=== PATIENT | male | born 1955 | race Caucasian/White ===

== ENCOUNTER 2019-10-02 08:43 | Outpatient (CLI) | payer MEDICARE, OTHER, SELFPAY | END 2019-10-02 08:44 | disposition home or self-care (01) | LOC: ANHAUDIO 08:50 | PROVIDERS: PCP Family Medicine; Visit Provider Otolaryngology | DX: H90.3 Sensorineural hearing loss, bilateral (principal) | CPT/HCPCS: 92557; 92567 ==

== ENCOUNTER 2020-11-08 09:50 | Outpatient (CLI) | payer MEDICARE, OTHER, SELFPAY ==
--- NOTE | 2020-11-08 09:54 | ECG_ITS ---
Measurements Intervals [place] Rate: 48 P: -63 MI: 219 QRS: -33 QRSD: 166 T: 2 QT: 435 QTc: 392 Interpretive Statements SINUS BRADYCARDIA WITH FIRST DEGREE AV BLOCK WITH NON-CONDUCTED PAC LEFT AXIS DEVIATION RIGHT BUNDLE BRANCH BLOCK ABNORMAL ECG Electronically Signed On 11-08-2020 10:18:14 CDT by Donnell Massey D.O.
== END 2020-11-08 09:51 | disposition home or self-care (01) ==
PROVIDERS: PCP Family Medicine; Visit Provider Urology
DX: Z01.810 Encounter for preprocedural cardiovascular examination (principal); R00.1 Bradycardia, unspecified; I44.0 Atrioventricular block, first degree
CPT/HCPCS: 93005

== ENCOUNTER 2020-11-14 02:06 | Day surgery (SDC) | payer MEDICARE, OTHER, SELFPAY ==
[2020-11-07 11:11] VITALS: BMI 31.8
[2020-11-14] VITALS (12 sets, daily range): BP systolic 91–161; BP diastolic 54–80; PULSE 47–61; RESP 11–15; TEMP 36.6; O2SAT 98–100; BMI 31.7
--- NOTE | ~2020-11-14 | XR_ITS ---
EXAMINATION: XR retrograde pyelogram BI EXAM DATE: 11/14/2020 09:56 INDICATION: Bladder tumor. TECHNIQUE: Fluoroscopy used during XR retrograde pyelogram BI performed by Dr. Surya Feliciano MD , urologist. The radiologist David Berry M.D. dictating this report of the image(s) available was no t present for the procedure. Total fluoroscopic time of 25 seconds. The DAP for this procedure was 695 radcm2. A total of 112 images sent to PACS from the exam. Cine run(s) available for review. Co mparison is made to prior examination from 02/18/2017. FINDINGS: Right ureter was cannulated, injected, is unremarkable. The left ureter was also injected and is also unremarkable. Correlate with procedure note. IMPRESSION: Fluoroscopy used during XR retrograde pyelogram BI. Reviewed, dictated and finalized at location A.
--- NOTE | 2020-11-14 07:13 | WPDHPUPDATE1 ---
History and Physical Update Update Date/Time: 11/14/20 07:13 History and Physical has been reviewed, including an updated exam of the patient. There are NO changes in the patient's condition. Risks, benefits, and alternatives have been discussed and questions answered. Patient agrees to proceed with procedure.
--- NOTE | 2020-11-14 08:47 | WPDANESEPPF ---
Anes - Initial Pre Proc Eval Procedure: Operation Date: 11/14/20 10:00 Proposed Procedures p Cystoscopy, Bilateral Retrograde Pyelogram, - Surya Feliciano MD s Trans Urethral Resection Bladder Tumor with Gemcitabine Instillation - Surya Feliciano MD Date/Time: 11/14/20 08:47 Surgeon: Surya Feliciano MD Pre Op Diagnosis: bladder CA Patient Data Age: 65 Gender: M Height: 1.79 m Weight: 102.1 kg Allergies Allergy/AdvReac Type Severity Reaction Status Date / Time No Known Allergies Allergy Mild Verified 11/14/20 08:35 Home Medications Medication Instructions Recorded Confirmed Type finasteride 5 mg tablet 5 mg PO DAILY 08/01/19 11/14/20 History magnesium 200 mg tablet 200 mg PO DAILY 08/01/19 11/07/20 History pnraiqkh-wah-euqjy 200 mcg-lycop 1 tablet PO DAILY 08/01/19 11/07/20 History 175 mcg-lutei 250 mcg-herb 178 tablet omega-3 fatty acids 1,000 mg 1,000 mg PO DAILY 08/01/19 11/07/20 History capsule lisinopril 20 mg tablet 20 mg PO DAILY tablet 08/06/20 11/14/20 History amlodipine 5 mg tablet 5 mg PO DAILY #90 tablet 11/07/20 11/14/20 Rx sildenafil (pulm.hypertension) 20 mg PO PRN PRN 11/07/20 11/07/20 History simvastatin 10 mg PO DAILY 11/07/20 11/14/20 History Patient hx anesthesia problems: none Family hx anesthesia problems: none PMFSH Past Medical History Medical History BPH NOS w/o ur obs/LUTS Dyslipidemia Erectile dysfunction Essential (primary) hypertension Hematoma Hypogonadism in male 11/2012 SHYANNE (obstructive sleep apnea) Tinnitus of both ears Vitamin D deficiency Family History Family History Father Family history of Alzheimer's disease Mother Family history of dementia Social History Social History Smoking status: Never smoker Alcohol intake: current Alcohol use details: 3 DRINKS PER MONTH Living arrangements: with family Spiritual care concerns: No Anes - Eval Final PreProcedure Day of Procedure 11/14/20 08:47 Patient weight: obese Heart: regular rate and rhythm Lungs: clear to auscultation Airway: Mallampati scale class II Neurological: alert and oriented Last oral intake: >/= 8 hours ASA classification: III Emergent: no Anesthetic plan: proceed Anesthesia type and monitoring: general and standard monitoring Informed Consent: The patient's anesthetic plan and its attendant risks and benefits were discussed with the patient/family/POA. Questions were solicited and answers provided to the satisfaction of the patient/family/POA.
[2020-11-14] MEDS: LACTATED RINGERS 1,000 ML 30 ML IV CONT (09:02)
[2020-11-14] MEDS: ceFAZolin 2 GM/D5W 50 ML 2 GM/50 ML BAG IVPB (09:31)
[2020-11-14] MEDS: LIDOCAINE HCL 2% GEL UROJET 10 ML PKG MUCOUS MEM (09:51)
--- NOTE | 2020-11-14 10:13 | W.PM.PROC2 ---
Procedure Note - Detailed Date of Procedure 11/14/20 Pre-op Diagnosis Bladder cancer Post-op Diagnosis same Procedure Performed TURBT (medium, 5-6cm) Surgeon Surya Feliciano MD Anesthesia general Description of Procedure The patient was brought to the operative suite where he is prepped and draped in a routine sterile fashion while in the dorsal lithotomy position. This is done after the uneventful administration of general mask anesthesia. 2% Xylocaine jelly is introduced intraurethrally and allowed to stand for an appropriate period of time. 1St, bilateral retrograde pyelograms were obtained using a 19 F rigid cystoscope an 8 F bulb-tipped catheter. These ureteral pyelograms revealed no filling defects or other identifiable pathology of the upper urinary tracts. A 24F resectoscope sheath was placed in the bladder and the bladder is circumferentially inspected carefully. 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 This area is resected in its entirety with an attempt made to include detrusor muscle for pathological evaluation of invasion. The base and periphery of this resected side is cauterized with a loop electrode. The remainder of the bladder reveals normal mucosa hence, I opted against reandom bladder biopsies. The bladder is emptied and the resectoscope was removed. The patient is taken to the recovery room having tolerated this procedure well. Estimated Blood Loss 0 Drains Yes Packing No Pathology yes Complications No immediate complications Condition stable Disposition PACU
--- NOTE | 2020-11-14 10:19 | W.PM.PROC2 ---
Procedure Note - Detailed Date of Procedure 11/14/20 Pre-op Diagnosis Bladder CA Post-op Diagnosis same Procedure Performed Instillation Gemcitabine in bladder Surgeon Surya Feliciano MD Anesthesia local Description of Procedure With the patient in the supine position, a 16F Sanchez catheter is placed using sterile technique. Using a protective facemask, gown and double layer of gloves Gemcitabine 2gm in 100cc saline is administered through the catheter/into the bladder. The catheter is then plugged. Patient was instructed to lie supine x20min, then to roll both the left and right x20 min. each. Total dwell time will be 60 min., after which the bladder will be drained and catheter removed. Estimated Blood Loss 0 Drains Yes Packing No Pathology none sent Complications No immediate complications Condition stable Disposition PACU
[2020-11-14] MEDS: SODIUM CHLORIDE 0.9% IV 23.7 ML, GEMCITABINE HCL 1,000 MG BLADDER ×2 (10:48→10:49)
[2020-11-14] MEDS: fentaNYL CITRATE INJ (*CRX) 100 MCG/2 ML VIAL 25 MCG IV PUSH ×2 (10:52→11:06)
== END 2020-11-14 13:21 | disposition home or self-care (01) ==
PROVIDERS: PCP Family Medicine; Visit Provider Urology
PROC: (CPT 52352; principal; 2020-11-14 10:00)
PROC: 0TBB8ZZ Excision of Bladder, Via Natural or Artificial Opening Endoscopic (ICD-10-PCS; CPT 52235; 2020-11-14 10:00)
DX: C67.8 Malignant neoplasm of overlapping sites of bladder (principal); I10 Essential (primary) hypertension; E78.5 Hyperlipidemia, unspecified; N40.0 Benign prostatic hyperplasia without lower urinary tract symptoms; G47.33 Obstructive sleep apnea (adult) (pediatric); E55.9 Vitamin D deficiency, unspecified; E66.9 Obesity, unspecified; Z68.31 Body mass index [BMI] 31.0-31.9, adult
CPT/HCPCS: 52235; 51720; 74420; 88305; 88307; A9270; C1758; C1769; J0690; J1100; J2405; J2704; J3010; J7120; J9201; Q9966

== ENCOUNTER 2022-02-16 10:29 | Outpatient (CLI) | payer MEDICARE, SELFPAY ==
[2022-02-16 18:48] LABS: Alanine Aminotransferase 35 U/L (6-50); Albumin Level 4.6 g/dL (3.5-5.1); Alkaline Phosphatase 75 U/L (38-126); Anion Gap 3 mmol/L (8-16); Aspartate Amino Transferase 51 U/L (17-59); Bilirubin,Total 0.4 mg/dL (0.2-1.3); Blood Urea Nitrogen 16 mg/dL (9-20); Carbon Dioxide 32 mmol/L (22-30); Chloride 102 mmol/L (98-107); Estimated Glomerular Filt Rate > 60; Glucose 81 mg/dL (65-110); Potassium 4.2 mmol/L (3.4-5.0); Sodium 137 mmol/L (137-145)
[2022-02-16 18:49] LABS: Hemoglobin A1C 5.8 % (<5.7)
== END 2022-02-16 10:30 | disposition home or self-care (01) ==
LOC: ANHGOSHLAB 10:33
PROVIDERS: PCP Family Medicine; Visit Provider Family Medicine
DX: I10 Essential (primary) hypertension (principal); R73.9 Hyperglycemia, unspecified
CPT/HCPCS: 36415; 80053; 83036

== ENCOUNTER 2022-09-17 09:36 | Outpatient (CLI) | payer MEDICARE, SELFPAY ==
[2022-09-17 14:31] LABS: Basophils Absolute Auto 0.1 K/mm3 (0.0-0.1); Basophils Percent Auto 1.1 % (0.2-1.2); Eosinophils Absolute Auto 0.2 K/mm3 (0-0.3); Eosinophils Percent Auto 2.6 % (0-4.4); Hematocrit 41.6 % (42.0-52.0); Hemoglobin 13.8 g/dL (14.0-18.0); Immature Granulocyte Absolute 0.02 K/mm3 (0.00-0.031); Immature Granulocyte Percent A 0.3 % (0-0.5); Lymphocytes Absolute Auto 2.57 K/mm3 (0.9-3.2); Lymphocytes Percent Auto 35.4 % (18.3-44.2); Mean Corpuscular HGB Conc 33.2 g/dl (32-36); Mean Corpuscular Hemoglobin 30.5 pg (26-34); Mean Corpuscular Volume 91.8 fl (80-100); Mean Platelet Volume 10.2 fl (7.4-10.4); Monocytes Absolute Auto 0.6 K/mm3 (0.1-0.6); Monocytes Percent Auto 8.4 % (2.6-8.5); Neutrophils Absolute Auto 3.8 K/mm3 (1.3-6.7); Neutrophils Percent Auto 52.2 % (45.5-73.1); Platelet Count Result 261 k/mm3 (150-375); Red Blood Count 4.53 M/mm3 (4.6-6.20); Red Cell Distribution Width 13.4 % (11.5-14.5); White Blood Count 7.3 K/mm3 (4.5-10.0)
[2022-09-17 16:48] LABS: Alanine Aminotransferase 36 U/L (6-50); Albumin Level 4.7 g/dL (3.5-5.1); Alkaline Phosphatase 80 U/L (38-126); Anion Gap 6 mmol/L (8-16); Aspartate Amino Transferase 36 U/L (17-59); Bilirubin,Total 0.5 mg/dL (0.2-1.3); Blood Urea Nitrogen 16 mg/dL (9-20); Carbon Dioxide 29 mmol/L (22-30); Chloride 107 mmol/L (98-107); Cholesterol 171 mg/dL (0-200); Estimated Glomerular Filt Rate > 60; Glucose 102 mg/dL (65-110); HDL Direct 42 mg/dL; Potassium 4.4 mmol/L (3.4-5.0); Sodium 142 mmol/L (137-145); Triglycerides 107 mg/dL (<150)
[2022-09-17 17:02] LABS: LDL Cholesterol Direct 96 mg/dL
[2022-09-17 17:17] LABS: Prostate Specific Antigen 0.2 ng/mL (< OR = 4.0)
[2022-09-17 17:50] LABS: Vitamin D 25 Hydroxy 60.7 ng/mL
[2022-09-17 18:45] LABS: Hemoglobin A1C 5.8 % (<5.7)
[2022-09-27 10:50] LABS: Testosterone Free 42.6 pg/mL (35.0-155.0); Testosterone Total 202 ng/dL (250-1100)
== END 2022-09-17 09:37 | disposition home or self-care (01) ==
LOC: ANHGOSHLAB 09:37
PROVIDERS: PCP Family Medicine; Visit Provider Family Medicine
DX: E78.5 Hyperlipidemia, unspecified (principal); E53.8 Deficiency of other specified B group vitamins; Z12.5 Encounter for screening for malignant neoplasm of prostate; R73.03 Prediabetes; E55.9 Vitamin D deficiency, unspecified; I10 Essential (primary) hypertension; N52.9 Male erectile dysfunction, unspecified; E29.1 Testicular hypofunction
CPT/HCPCS: 36415; 80053; 80061; 82306; 82607; 83036; 84153; 84402; 84403; 84443; 85025; G0103

== ENCOUNTER 2022-11-05 13:41 | Outpatient (CLI) | payer MEDICARE, SELFPAY ==
[2022-11-08 14:53] LABS: Testosterone Free 49.5 pg/mL (35.0-155.0); Testosterone Total 245 ng/dL (250-1100)
== END 2022-11-05 13:42 | disposition home or self-care (01) ==
LOC: ANHGOSHLAB 13:45
PROVIDERS: PCP Family Medicine; Visit Provider Family Medicine
DX: E29.1 Testicular hypofunction (principal)
CPT/HCPCS: 36415; 84402; 84403

== ENCOUNTER 2022-11-06 09:28 | Outpatient (CLI) | payer MEDICARE, SELFPAY ==
--- NOTE | ~2022-11-06 | CT_ITS ---
CT of the Abdomen and Pelvis: Indication: Bladder cancer Technique: 2.5 mm axial scans were obtained through the abdomen and pelvis prior to and following in travenous administration of 130 cc of Omnipaque 350. Dose reduction technique was used on this scan b y utilizing automated exposure control and iterative reconstruction technique. The dose-length produc t (DLP) was 2721.48 mGy-cm. Findings: Scans through the lung bases are unremarkable. The liver, spleen, pancreas, adrenals and kidneys are within normal limits. Gallstone present. No jodie dence of aortic aneurysm. No lymphadenopathy. No bowel obstruction or bowel wall thickening. There is no evidence to suggest acute appendicitis. Images through the pelvis were performed. Questionable mild wall thickening on the right side of the urinary bladder. Fat-containing right inguinal hernia present. No pelvic mass identified. No ascites. Impression: No evidence for metastatic disease. Questionable mild wall thickening along the right-sided urinary bladder, nonspecific. Correlate with clinical/treatment history. Fat-containing right inguinal hernia. Cholelithiasis. Reviewed, dictated and finalized at location . Impression: No evidence for metastatic disease. Questionable mild wall thickening along the right-sided urinary bladder, nonspe cific. Correlate with clinical/treatment history. Fat-containing right inguinal hernia. Cholelithiasis.
[2022-11-06 10:16] LABS: Estimated Glomerular Filt Rate > 60
== END 2022-11-06 09:29 | disposition home or self-care (01) ==
LOC: ANHIMG 09:30
PROVIDERS: PCP Family Medicine; Visit Provider Urology
DX: C67.8 Malignant neoplasm of overlapping sites of bladder (principal); K40.90 Unilateral inguinal hernia, without obstruction or gangrene, not specified as recurrent; K80.20 Calculus of gallbladder without cholecystitis without obstruction
CPT/HCPCS: 74178; Q9967

== ENCOUNTER 2022-12-07 00:36 | Day surgery (SDC) | payer MEDICARE, SELFPAY ==
[2022-11-25 13:53] VITALS: BMI 34.1
[2022-12-07 10:09] VITALS: BP 155/79; PULSE 62; RESP 18; TEMP 36.1; O2SAT 98; BMI 32.0
[2022-12-07] MEDS: LACTATED RINGERS 1,000 ML 150 ML IV CONT (10:38)
--- NOTE | 2022-12-07 10:48 | PM.HPGS ---
History of Present Illness History of Present Illness Consent: Risks, benefits, and alternatives have been discussed and questions answered. Patient agrees to proceed with procedure. Chief complaint: hx colon polyps Narrative: Valeriano Starr is a 67 year old male Presents for screening colonoscopy. Patient's current weight appetite and bowel movements are normal. Patient denies abdominal pain. He has had no bleeding. Family history noncontributory. Previous colonoscopy [address] Gary Krens was Unremarkable. Apparently has had colon polyps prior to this. Review of Systems Review of Systems: review of systems noncontributory. [facility] Past Medical History Medical History BPH NOS w/o ur obs/LUTS Dyslipidemia Erectile dysfunction Essential (primary) hypertension Hematoma History of colon polyps Hypogonadism in male 11/2012 SHYANNE (obstructive sleep apnea) Prediabetes Tinnitus of both ears Vitamin D deficiency Surgical History Surgical History History of excision of mass excision of abdominal wall mass RHW on 10/15/22 Hx of appendectomy (~08/2021) Ruptured appendix Status post surgical removal and fulguration of bladder neoplasm (~11/14/20) s/p - TURBT and Instillation Gemcitabine in bladder Family History Family History Father Family history of Alzheimer's disease Mother Family history of dementia Unknown Diabetes mellitus Cancer Social History Social History Smoking status: Never smoker Alcohol intake: current Drinks per week: 1 Alcohol use details: 3 DRINKS PER MONTH Substance use: never Substance use type: does not use Lack of Transportation: No Lack of Food: Never True Current Housing: I Have Housing Concerned About Future Housing: No Difficulty Paying Gas/Electric Bills: No Difficulty Paying for Meds: No Currently Unemployed: No Education: Bachelor's Degree Difficulty w/ Childcare or Family Care: No Living arrangements: with friend(s) Occupation/Education: retired Gender identity (if verbalized by the patient): Male Spiritual care concerns: No Agree to blood products: Yes Meds Home Medications and Allergies Home Medications Medication Instructions Recorded Confirmed Type finasteride 5 mg tablet 5 mg PO DAILY 08/01/19 12/07/22 History omdfakeu-ouh-qthfx 200 mcg-lycop 1 tablet PO DAILY 08/01/19 12/07/22 History 175 mcg-lutei 250 mcg-herb 178 tablet ([employer]las Multivitamin For Men) cholecalciferol (vitamin D3) 50 50 mcg PO DAILY 08/18/21 12/07/22 History mcg (2,000 unit) capsule magnesium oxide 500 mg capsule 400 mg PO DAILY 08/18/21 12/07/22 History omega-3 fatty acids 1,000 mg 2,000 mg PO DAILY 08/18/21 12/07/22 History capsule (Fish Oil Concentrate) amlodipine 5 mg tablet 5 mg PO DAILY #90 tabs 02/04/22 12/07/22 Rx simvastatin 10 mg tablet 10 mg PO QHS #90 tabs 09/14/22 12/07/22 Rx cyanocobalamin (vitamin B-12) 1,000 mcg sublingual DAILY #90 tabs 09/21/22 12/07/22 Rx 1,000 mcg sublingual tablet sildenafil 100 mg tablet (Viagra) 100 mg PO DAILY PRN sexual 09/21/22 12/07/22 Rx activity #30 tabs testosterone cypionate 200 mg/mL 200 mg IM MONTHLY #3 vials 09/29/22 12/07/22 Rx intramuscular oil (Depo-Testosterone) needle (disp) 25 gauge 25 gauge x #100 ea 09/30/22 12/07/22 Rx 1 1/2 (BD Regular Bevel [place]) syringe with needle 3 mL 18 x 1 #100 ea 09/30/22 12/07/22 Rx 1/2 (BD Luer-Cj Syringe) lisinopril 40 mg tablet 40 mg PO DAILY 11/05/22 12/07/22 History Allergies Allergy/AdvReac Type Severity Reaction Status Date / Time No Known Allergies Allergy Mild Verified 12/07/22 10:18 Vital Signs Vital Signs - 24 hr 12/07/22 10:09 Temperature 97.0 F L Pulse Rate 6
--- NOTE | 2022-12-07 10:54 | WPDANESEPPF ---
Anes - Initial Pre Proc Eval Procedure: Operation Date: 12/07/22 11:00 Proposed Procedures p Colonoscopy - Gary Graves MD Date/Time: 12/07/22 10:54 Surgeon: Gary Graves MD Pre Op Diagnosis: hx colon polyps Patient Data Age: 67 Gender: M Height: 1.78 m Weight: 101.2 kg Last Vital Signs Temp 97.0 F L 12/07/22 10:09 Pulse 62 12/07/22 10:09 Resp 18 12/07/22 10:09 BP 155/79 H 12/07/22 10:09 Pulse Ox 98 12/07/22 10:09 O2 Del Method Room Air 12/07/22 10:09 Allergies Allergy/AdvReac Type Severity Reaction Status Date / Time No Known Allergies Allergy Mild Verified 12/07/22 10:18 Home Medications Medication Instructions Recorded Confirmed Type finasteride 5 mg tablet 5 mg PO DAILY 08/01/19 12/07/22 History ymqbcjhd-mdv-zchkt 200 mcg-lycop 1 tablet PO DAILY 08/01/19 12/07/22 History 175 mcg-lutei 250 mcg-herb 178 tablet ([employer]las Multivitamin For Men) cholecalciferol (vitamin D3) 50 50 mcg PO DAILY 08/18/21 12/07/22 History mcg (2,000 unit) capsule magnesium oxide 500 mg capsule 400 mg PO DAILY 08/18/21 12/07/22 History omega-3 fatty acids 1,000 mg 2,000 mg PO DAILY 08/18/21 12/07/22 History capsule (Fish Oil Concentrate) amlodipine 5 mg tablet 5 mg PO DAILY #90 tabs 02/04/22 12/07/22 Rx simvastatin 10 mg tablet 10 mg PO QHS #90 tabs 09/14/22 12/07/22 Rx cyanocobalamin (vitamin B-12) 1,000 mcg sublingual DAILY #90 tabs 09/21/22 12/07/22 Rx 1,000 mcg sublingual tablet sildenafil 100 mg tablet (Viagra) 100 mg PO DAILY PRN sexual 09/21/22 12/07/22 Rx activity #30 tabs testosterone cypionate 200 mg/mL 200 mg IM MONTHLY #3 vials 09/29/22 12/07/22 Rx intramuscular oil (Depo-Testosterone) needle (disp) 25 gauge 25 gauge x #100 ea 09/30/22 12/07/22 Rx 1 1/2 (BD Regular Bevel [place]) syringe with needle 3 mL 18 x 1 #100 ea 09/30/22 12/07/22 Rx 1/2 (BD Luer-Jc Syringe) lisinopril 40 mg tablet 40 mg PO DAILY 11/05/22 12/07/22 History Patient hx anesthesia problems: none Family hx anesthesia problems: none Results Review: All pre-operative results and documents have been reviewed as part of the pre-operative evaluation. [facility] Past Medical History Medical History BPH NOS w/o ur obs/LUTS Dyslipidemia Erectile dysfunction Essential (primary) hypertension Hematoma History of colon polyps Hypogonadism in male 11/2012 SHYANNE (obstructive sleep apnea) Prediabetes Tinnitus of both ears Vitamin D deficiency Surgical History Surgical History History of excision of mass excision of abdominal wall mass RHW on 10/15/22 Hx of appendectomy (~08/2021) Ruptured appendix Status post surgical removal and fulguration of bladder neoplasm (~11/14/20) s/p - TURBT and Instillation Gemcitabine in bladder Family History Family History Father Family history of Alzheimer's disease Mother Family history of dementia Unknown Diabetes mellitus Cancer Social History Social History Smoking status: Never smoker Alcohol intake: current Drinks per week: 1 Alcohol use details: 3 DRINKS PER MONTH Substance use: never Substance use type: does not use Lack of Transportation: No Lack of Food: Never True Current Housing: I Have Housing Concerned About Future Housing: No Difficulty Paying Gas/Electric Bills: No Difficulty Paying for Meds: No Currently Unemployed: No Education: Bachelor's Degree Difficulty w/ Childcare or Family Care: No Living arrangements: with friend(s) Occupation/Education: retired Gender identity (if verbalized by the patient): Male Spiritual care concerns: No Agree to blood products: Yes Anes - Eval Final PreProcedure Day of Procedure 12/07/22 10:54 Patient weight: obese [place]
[2022-12-07 11:37] VITALS: BP 133/79; PULSE 63; RESP 15; O2SAT 97
[2022-12-07 11:47] VITALS: BP 126/81; PULSE 63; RESP 17; O2SAT 98
[2022-12-07 11:57] VITALS: BP 125/75; PULSE 54; RESP 18; O2SAT 98
== END 2022-12-07 12:06 | disposition home or self-care (01) ==
PROVIDERS: PCP Family Medicine; Visit Provider Internal Medicine Gastroenterology
PROC: 0DJD8ZZ Inspection of Lower Intestinal Tract, Via Natural or Artificial Opening Endoscopic (ICD-10-PCS; CPT 45378; principal; 2022-12-07 11:00)
DX: Z12.11 Encounter for screening for malignant neoplasm of colon (principal); K64.8 Other hemorrhoids; K57.32 Diverticulitis of large intestine without perforation or abscess without bleeding; Z86.010 Personal history of colon polyps; I10 Essential (primary) hypertension; E78.5 Hyperlipidemia, unspecified; G47.33 Obstructive sleep apnea (adult) (pediatric); N40.0 Benign prostatic hyperplasia without lower urinary tract symptoms; R73.03 Prediabetes; E55.9 Vitamin D deficiency, unspecified; E66.9 Obesity, unspecified; Z68.32 Body mass index [BMI] 32.0-32.9, adult
CPT/HCPCS: G0105; J0461; J2704; J7120

== ENCOUNTER 2023-03-25 10:24 | Outpatient (CLI) | payer MEDICARE, OTHER, SELFPAY ==
[2023-03-25 12:46] LABS: Basophils Absolute Auto 0.1 K/mm3 (0.0-0.1); Basophils Percent Auto 0.7 % (0.2-1.2); Eosinophils Absolute Auto 0.3 K/mm3 (0-0.3); Eosinophils Percent Auto 2.5 % (0-4.4); Hematocrit 45.6 % (42.0-52.0); Hemoglobin 14.8 g/dL (14.0-18.0); Immature Granulocyte Absolute 0.08 K/mm3 (0.00-0.031); Immature Granulocyte Percent A 0.8 % (0-0.5); Lymphocytes Absolute Auto 3.36 K/mm3 (0.9-3.2); Lymphocytes Percent Auto 33.8 % (18.3-44.2); Mean Corpuscular HGB Conc 32.5 g/dl (32-36); Mean Corpuscular Volume 92.5 fl (80-100); Mean Platelet Volume 10.1 fl (7.4-10.4); Monocytes Absolute Auto 0.7 K/mm3 (0.1-0.6); Monocytes Percent Auto 6.9 % (2.6-8.5); Neutrophils Absolute Auto 5.5 K/mm3 (1.3-6.7); Neutrophils Percent Auto 55.3 % (45.5-73.1); Platelet Count Result 304 k/mm3 (150-375); Red Blood Count 4.93 M/mm3 (4.6-6.20); Red Cell Distribution Width 13.7 % (11.5-14.5); White Blood Count 9.9 K/mm3 (4.5-10.0)
[2023-03-25 13:21] LABS: Alanine Aminotransferase 45 U/L (6-50); Albumin Level 4.7 g/dL (3.5-5.1); Alkaline Phosphatase 85 U/L (38-126); Anion Gap 10 mmol/L (8-16); Aspartate Amino Transferase 60 U/L (17-59); Bilirubin,Total 0.5 mg/dL (0.2-1.3); Blood Urea Nitrogen 20 mg/dL (9-20); Calcium 9.3 mg/dL (8.4-10.2); Carbon Dioxide 27 mmol/L (22-30); Chloride 106 mmol/L (98-107); Estimated Glomerular Filt Rate > 60; Glucose 94 mg/dL (65-110); Potassium 4.6 mmol/L (3.4-5.0); Sodium 143 mmol/L (137-145)
[2023-03-25 13:36] LABS: Hemoglobin A1C 6.1 % (<5.7)
== END 2023-03-25 10:25 | disposition home or self-care (01) ==
LOC: ANHGOSHLAB 10:26
PROVIDERS: PCP Family Medicine; Visit Provider Family Medicine
DX: R73.03 Prediabetes (principal); E78.5 Hyperlipidemia, unspecified; I10 Essential (primary) hypertension
CPT/HCPCS: 36415; 80053; 83036; 85025

== ENCOUNTER 2023-06-22 00:27 | Day surgery (SDC) | payer MEDICARE, SELFPAY ==
[2023-05-07 12:35] VITALS: BMI 32.8
[2023-06-11 16:06] VITALS: BMI 32.8
[2023-06-22 10:09] VITALS: BP 146/77; PULSE 64; RESP 18; TEMP 36.1; O2SAT 98
[2023-06-22] MEDS: LACTATED RINGERS 1,000 ML 150 ML IV CONT (10:19)
--- NOTE | 2023-06-22 10:23 | WPDANESEPPF ---
Anes - Initial Pre Proc Eval Procedure: Operation Date: 06/22/23 11:00 Proposed Procedures p Esophagogastroduodenoscopy - Shan Proctor MD Date/Time: 06/22/23 10:23 Surgeon: Shan Proctor MD Pre Op Diagnosis: Other specified disease of esophagus Patient Data Age: 67 Gender: M Height: 1.78 m Weight: 104 kg Last Vital Signs Temp 97 F L 06/22/23 10:09 Pulse 64 06/22/23 10:09 Resp 18 06/22/23 10:09 BP 146/77 H 06/22/23 10:09 Pulse Ox 98 06/22/23 10:09 O2 Del Method Room Air 06/22/23 10:09 Allergies Allergy/AdvReac Type Severity Reaction Status Date / Time No Known Allergies Allergy Mild Verified 06/22/23 10:08 Home Medications Medication Instructions Recorded Confirmed Type finasteride 5 mg tablet 5 mg PO DAILY 08/01/19 06/11/23 History iewwiqex-eyy-vfinl 200 mcg-lycop 1 tablet PO DAILY 08/01/19 06/11/23 History 175 mcg-lutei 250 mcg-herb 178 tablet ([employer]las Multivitamin For Men) omega-3 fatty acids 1,000 mg 2,000 mg PO DAILY 08/18/21 06/11/23 History capsule (Fish Oil Concentrate) cyanocobalamin (vitamin B-12) 1,000 mcg sublingual DAILY #90 tabs 09/21/22 06/11/23 Rx 1,000 mcg sublingual tablet sildenafil 100 mg tablet (Viagra) 100 mg PO DAILY PRN sexual 09/21/22 06/11/23 Rx activity #30 tabs needle (disp) 25 gauge 25 gauge x #100 ea 09/30/22 06/11/23 Rx 1 1/2 (BD Regular Bevel [place]) syringe with needle 3 mL 18 x 1 #100 ea 09/30/22 06/11/23 Rx 1/2 (BD Luer-Cj Syringe) lisinopril 40 mg tablet 40 mg PO DAILY 11/05/22 06/11/23 History cholecalciferol (vitamin D3) 25 25 mcg PO DAILY 01/07/23 06/11/23 History mcg (1,000 unit) capsule simvastatin 10 mg tablet 10 mg PO QHS #90 tabs 03/18/23 06/11/23 Rx magnesium oxide 500 mg capsule 400 mg PO DAILY 03/25/23 06/11/23 History amlodipine 5 mg tablet 5 mg PO DAILY #90 tabs 05/12/23 06/11/23 Rx Patient hx anesthesia problems: none Family hx anesthesia problems: none Results Review: All pre-operative results and documents have been reviewed as part of the pre-operative evaluation. [facility] Past Medical History Medical History (Updated 05/26/23 @ 10:49 by Donna Thomson, STEFAN) Abnormal CT scan, esophagus BPH NOS w/o ur obs/LUTS Cholelithiasis Diverticula of colon Dyslipidemia Erectile dysfunction Essential (primary) hypertension Hematoma History of colon polyps History of diverticulitis Hypogonadism in male 11/2012 Left thigh pain Obesity SHYANNE (obstructive sleep apnea) Prediabetes Tinnitus of both ears Vitamin D deficiency Surgical History Surgical History History of excision of mass excision of abdominal wall mass RHW on 10/15/22 Hx of appendectomy (~08/2021) Ruptured appendix Status post surgical removal and fulguration of bladder neoplasm (~11/14/20) s/p - TURBT and Instillation Gemcitabine in bladder Family History Family History Father Family history of Alzheimer's disease Mother Family history of dementia Unknown Diabetes mellitus Cancer Social History Social History Smoking status: Never smoker Alcohol intake: current Drinks per week: 1 Alcohol use details: rarely Substance use: never Substance use type: does not use Lack of Transportation: No Lack of Food: Never True Current Housing: I Have Housing Concerned About Future Housing: No Difficulty Paying Gas/Electric Bills: No Difficulty Paying for Meds: No Currently Unemployed: No Education: Bachelor's Degree Difficulty w/ Childcare or Family Care: No Living arrangements: alone Occupation/Education: retired Gender identity (if verbalized by the patient): Male Spiritual care concerns: No Agree to blood products: Yes Anes - Eval Final PreProcedure Day of Procedure 06/22/23 10:23 Patient
--- NOTE | 2023-06-22 10:53 | PM.HPGS ---
History of Present Illness History of Present Illness Consent: Risks, benefits, and alternatives have been discussed and questions answered. Patient agrees to proceed with procedure. Chief complaint: Other specified disease of esophagus Narrative: Valeriano Starr is a 67 year old male here for egd. Had incidental finding of abnormal esophagus by CT scan, denies dysphagia or gerd symptoms. Review of Systems Review of Systems: All systems reviewed & are unremarkable except as noted in HPI and below PMFSH Past Medical History Medical History (Updated 05/26/23 @ 10:49 by Donna Thomson, BUILD MANAGER) Abnormal CT scan, esophagus BPH NOS w/o ur obs/LUTS Cholelithiasis Diverticula of colon Dyslipidemia Erectile dysfunction Essential (primary) hypertension Hematoma History of colon polyps History of diverticulitis Hypogonadism in male 11/2012 Left thigh pain Obesity SHYANNE (obstructive sleep apnea) Prediabetes Tinnitus of both ears Vitamin D deficiency Surgical History Surgical History History of excision of mass excision of abdominal wall mass RHW on 10/15/22 Hx of appendectomy (~08/2021) Ruptured appendix Status post surgical removal and fulguration of bladder neoplasm (~11/14/20) s/p - TURBT and Instillation Gemcitabine in bladder Family History Family History Father Family history of Alzheimer's disease Mother Family history of dementia Unknown Diabetes mellitus Cancer Social History Social History Smoking status: Never smoker Alcohol intake: current Drinks per week: 1 Alcohol use details: rarely Substance use: never Substance use type: does not use Lack of Transportation: No Lack of Food: Never True Current Housing: I Have Housing Concerned About Future Housing: No Difficulty Paying Gas/Electric Bills: No Difficulty Paying for Meds: No Currently Unemployed: No Education: Bachelor's Degree Difficulty w/ Childcare or Family Care: No Living arrangements: alone Occupation/Education: retired Gender identity (if verbalized by the patient): Male Spiritual care concerns: No Agree to blood products: Yes Meds Home Medications and Allergies Home Medications Medication Instructions Recorded Confirmed Type finasteride 5 mg tablet 5 mg PO DAILY 08/01/19 06/11/23 History ecehzjjx-kzs-hbpiw 200 mcg-lycop 1 tablet PO DAILY 08/01/19 06/11/23 History 175 mcg-lutei 250 mcg-herb 178 tablet ([employer]las Multivitamin For Men) omega-3 fatty acids 1,000 mg 2,000 mg PO DAILY 08/18/21 06/11/23 History capsule (Fish Oil Concentrate) cyanocobalamin (vitamin B-12) 1,000 mcg sublingual DAILY #90 tabs 09/21/22 06/11/23 Rx 1,000 mcg sublingual tablet sildenafil 100 mg tablet (Viagra) 100 mg PO DAILY PRN sexual 09/21/22 06/11/23 Rx activity #30 tabs needle (disp) 25 gauge 25 gauge x #100 ea 09/30/22 06/11/23 Rx 1 1/2 (BD Regular Bevel [place]) syringe with needle 3 mL 18 x 1 #100 ea 09/30/22 06/11/23 Rx 1/2 (BD Luer-Cj Syringe) lisinopril 40 mg tablet 40 mg PO DAILY 11/05/22 06/11/23 History cholecalciferol (vitamin D3) 25 25 mcg PO DAILY 01/07/23 06/11/23 History mcg (1,000 unit) capsule simvastatin 10 mg tablet 10 mg PO QHS #90 tabs 03/18/23 06/11/23 Rx magnesium oxide 500 mg capsule 400 mg PO DAILY 03/25/23 06/11/23 History amlodipine 5 mg tablet 5 mg PO DAILY #90 tabs 05/12/23 06/11/23 Rx Allergies Allergy/AdvReac Type Severity Reaction Status Date / Time No Known Allergies Allergy Mild Verified 06/22/23 10:08 Vital Signs Vital Signs - 24 hr 06/22/23 10:09 Temperature 97 F L Pulse Rate 64 Respiratory Rate 18 Blood Pressure 146/77 H Pulse Oximetry 98 Oxygen Delivery Room Air Exam Const: General: comfortable and no acute distress HENMT: Face/Nose/Sinus: Normal nares presen
[2023-06-22 11:02] VITALS: BP 120/72; PULSE 60; RESP 18; O2SAT 95
[2023-06-22 11:12] VITALS: BP 116/70; PULSE 60; RESP 18; O2SAT 96
== END 2023-06-22 11:33 | disposition home or self-care (01) ==
PROVIDERS: PCP Family Medicine; Visit Provider Internal Medicine Gastroenterology
PROC: 0DJ08ZZ Inspection of Upper Intestinal Tract, Via Natural or Artificial Opening Endoscopic (ICD-10-PCS; CPT 43235; principal; 2023-06-22 11:00)
DX: R93.3 Abnormal findings on diagnostic imaging of other parts of digestive tract (principal); I10 Essential (primary) hypertension; N40.0 Benign prostatic hyperplasia without lower urinary tract symptoms; E78.5 Hyperlipidemia, unspecified; E55.9 Vitamin D deficiency, unspecified; R73.03 Prediabetes; E66.9 Obesity, unspecified; Z68.32 Body mass index [BMI] 32.0-32.9, adult
CPT/HCPCS: 43235; J2704; J7120

== ENCOUNTER 2024-05-12 09:40 | Outpatient (CLI) | payer MEDICARE, OTHER, SELFPAY ==
--- OUTSIDE RECORDS SUMMARY | 2024-05-12 10:17 | XMS_ITS | Clinical Summary ---
Author Organization [facility] Address [address] [place] [address] Care Team Providers Care Communicable Disease Specialist Name Role Phone Shannon King MD Primary Care Provider Allergies No known active allergies Medications docosahexaenoi c acid-epa 120-180 mg capsule Take 2,000 mg by mouth daily Active finasteride (PROSCAR) 5 mg tablet Take 1 tablet (5 mg total) by mouth daily 06/21/19 22 Active simvastatin (ZOCOR) 10 mg tablet Take 1 tablet (10 mg total) by mouth nightly 08/14/19 22 Active cholecalcifero l (VITAMIN D-3) 25 mcg (1,000 unit) tablet Take 1 tablet (1,000 Units total) by mouth daily Active multivit minerals-iron- FA-calcium (THERA-M) 9 mg iron-400 mcg tablet Take 1 tablet by mouth daily 30 tablet 11 08/28/19 22 Active sildenafiL (VIAGRA) 50 mg tablet Take 1 tablet (50 mg total) by mouth daily as needed for erectile dysfunction Active magnesium oxide (MAG-OX) 250 mg (150.8 mg elemental) tabletIndicati ons:hypomagnes emia 1 tablet (250 mg total) daily Active HYDROcodone-ac etaminophen (NORCO) 5-325 mg per tabletIndicati ons:Pain Take 1 tablet by mouth every 6 (six) hours as needed for pain 10 tablet 01/02/20 23 Active amLODIPine (NORVASC) 10 mg tabletIndicati ons:hypertensi on Take 1 tablet (10 mg total) by mouth daily 90 tablet 3 07/14/19 24 025 Active fish cah-jkrxu-4-vi t C-vit E 2,000-650-12 mg/2.5 gram emulsion in packet Take by mouth Active lisinopriL (PRINIVIL,ZEST RIL) 40 mg tablet TAKE 1 TABLET BY MOUTH EVERY DAY 90 tablet 1 01/11/20 24 Active ondansetron (ZOFRAN) 4 mg tablet Take 1 tablet (4 mg total) by mouth every 4 (four) hours as needed for nausea or vomiting 20 tablet 01/02/20 23 025 Discontinued Active Problems Problem Noted Date Diagnosed Date Heart block 12/14/2021 Atrioventricular block, Mobitz type 1, Wenckebac h 12/14/2021 Right-sided chest pain 12/14/2021 Essential hypertension, benign 12/14/2021 Mixed hyperlipidemia 12/14/2021 Right bundle branch block 12/14/2021 Cholelithiasis 12/14/2021 Acute appendicitis 08/25/2021 Bradycardia Essential hypertension Encounters Date Type Department Care Team Description 05/10/2024 8:30 AM RETAIL DEPARTMENT SUPERVISOR Office Visit [facility] Medical [facility] Cardiology [address] [address] Ela Novak MD Dyspnea on exertion (Primary Dx); Atrioventricular block, Mobitz type 1, Wenckebach; Essential hypertension; Mixed hyperlipidemia from Last 3 Months Surgical History Surgery Date Site/Laterality Comments APPENDECTOMY BLADDER SURGERY Medical History Medical History Date Comments Bladder cancer (HCC) 12/31/2022 Hyperlipidemia Hypertension Benign prostatic hyperplasia Sleep apnea Family History Medical History Relation Name Comments COPD Brother 1 Jared Starr Diabetes Brother 2 Ed Starr Relation Name Status Comments Brother 1 Jared Starr Brother 2 Ed Starr Social History Tobacco Use Types Packs/Day Years Used Date Smoking Tobacco: Never Smokeless Tobacco: Never Tobacco Cessation:Counseling Given: Not Answered AUDIT-C Answer Date Recorded Q1: How often do you have a drink containing alc ohol? Monthly or less 12/14/2021 Q2: How many drinks containi ng alcohol do you have on a typical day when you are drinking? 1 or 2 12/14/2021 Q3: How often do you have si x or more drinks on one occasion? Never 12/14/2021 PHQ-2 Answer Date Recorded PHQ-2 Total Score (If total score is 3 or more points, staff should administer the PHQ-9) 0 08/25/2021 Sex and Gender Information Value Date Recorded Sex Assigned at Not on file Legal Sex Male 9:12 PM RETAIL DEPARTMENT SUPERVISOR Gender Identity Male 12/08/2023 1:29 PM CDT Sexual Orientation Straight 12/08/2023 1: 29 PM CDT Obstetrics History Last Filed Vital Signs Vital Sign Reading Time Taken Comments Blood Pressure 144/93 05/10/2024 8:25 AM RETAIL DEPARTMENT SUPERVISOR Pulse 72 05/10/2024 8:25 AM RETAIL DEPARTMENT SUPERVISOR Temperature 36.6 C (97.9 F) 12/31/2022 11:26 PM CDT Respiratory Rate 13 01/01/2023 3:30 AM CDT Oxygen Saturation 98% 05/10/2024 8:25 AM RETAIL DEPARTMENT SUPERVISOR Inhaled Oxygen Concentration - - Weight 109.5 kg (241 lb 6.4 oz) 05/10/2024 8:25 AM RETAIL DEPARTMENT SUPERVISOR Height 177.8 cm (5' 10 ) 07/14/2023 3:10 PM CDT Body Mass Index 34.64 07/14/2023 3:10 PM CDT Plan of Treatment Health Maintenance Due Date Last Done Comments Colon Cancer Screening-Colonoscopy 1955 Hepatitis C Screening 1955 Hepatitis B Screening 09/13/1971 Well Visit 65+ 2018 Depression Screening 08/25/2022 08/25/2021 Fall Risk Assessment 12/16/2022 12/16/2021 Covid-19 Vaccine (4 - 2023-2 5 season) 2023 01/24/2021, 06/29/2020, 06/08/2020 Influenza Vaccine (#1) 2023 , 11/14/2019, 01/29/2018, Additional history exists DTaP/Tdap/Td Vaccine (3 - Td or Tdap) 06/03/2028 06/03/2018, 11/28/2012 Zoster Vaccine Completed 02/20/2020, 12/01/2019 Pneumococcal vaccine 65+ Completed 02/10/2021, 11/07 Procedures Procedure Name Priority Date/Time Associated Diagnosis Comments ECG 12-LEAD Routine 05/10/2024 8:29 AM RETAIL DEPARTMENT SUPERVISOR Dyspnea on exertion from Last 3 Months Results * ECG 12 lead (05/10/2024 8:29 AM RETAIL DEPARTMENT SUPERVISOR) Ela Novak MD ECG ORDERABLES Fi nal Result from Last 3 Months Insurance MEDICARE [facility] MEDICARE [facility] SUPPLEMENT [employer]ICKY QU[employer]ONEZ [id number] FORMER[facility] [place] [id number] MEDICARE Advance Directives For more information, please contact: [phone] * Full Code (Latest Code Status on File) Date Activated Date Inactivated Comments 12/14/2021 4:20 AM 12/16/2021 6:07 PM * Full Code Date Activated Date Inactivated Comments 08/25/2021 2:06 PM 08/26/2021 7:12 PM Care Teams Communicable Disease Specialist Relationship Specialty Start Date End Date Shannon King MD PCP - General Family Practice 08/25/21
--- OUTSIDE RECORDS SUMMARY | 2024-05-12 10:17 | XMS_ITS | Clinical Summary ---
Author Organization [facility] Address [address] [place] [address] Care Team Providers Care Floral Assistant Name Role Phone Shannon King MD Primary Care Provider Allergies No known active allergies Medications aspirin EC (ASPIRIN EC) 81 MG tablet Take 81 mg by mouth daily. Active finasteride 5 MG tablet Take 5 mg by mouth daily. 4 05/16/2018 Active simvastatin 10 MG tablet Take 10 mg by mouth nightly at bedtime. 3 04/14/2018 Active MAGNESIUM OR Active fish oil 1000 MG Cap capsule Take 1,000 mg by mouth daily. Active sildenafil 20 MG tablet TAKE 2-5 TABLETS DAILY 1 HOUR PRIOR TO SEXUAL ACTIVITY 1 06/24/2017 Active Immunizations Name Administration Dates Next Due Tdap (Boostrix) 06/03/2018 Family History Medical History Relation Comments COPD Brother Hyperlipidemia Father Relation Status Comments Brother Father Social History Tobacco Use Types Packs/Day Years Used Date Smoking Tobacco: Never Smokeless Tobacco: Never Alcohol Use Standard Drinks/Week Comments Yes 0 (1 standard drink = 0.6 oz pur e alcohol) AUDIT-C Answer Date Recorded Frequency of Alcohol Consumption Never 06/03/2018 Average Number of Drinks Not on file 019 Frequency of Binge Drinking Not on file 05/07 Sex and Gender Information Value Date Recorded Sex Assigned at Not on file Legal Sex Male 10:27 AM CDT Gender Identity Not on file Sexual Orientation Not on file Last Filed Vital Signs Vital Sign Reading Time Taken Comments Blood Pressure 161/92 06/03/2018 10:35 AM CDT Pulse 79 06/03/2018 10:35 AM CDT Temperature 36.5 C (97.7 F) 06/03/2018 10:35 AM CDT Respiratory Rate 16 06/03/2018 10:35 AM CDT Oxygen Saturation 97% 06/03/2018 10:35 AM CDT Inhaled Oxygen Concentration - - Weight 105.2 kg (232 lb) 06/03/2018 10:35 AM CDT Height 177.8 cm (5' 10 ) 06/03/2018 10:35 AM CDT Body Mass Index 33.29 06/03/2018 10:35 AM CDT Plan of Treatment Health Maintenance Due Date Last Done Comments Colorectal Cancer Screening Colonoscopy (10 Years) 1955 Hepatitis C 09/13/1971 Zoster Vaccines (1 of 2) 09/13/2003 Pneumococcal Vaccine: 65+ Ye ars (1 of 1 - PCV) 2018 COVID-19 Vaccine ( - 2023-2 5 season) 2023 Influenza Adult (#1) 2023 DTaP, Tdap and Td Vaccines ( 2 - Td or Tdap) 06/03/2028 06/03/2018 RSV Immunization or 60+ Years (1 - 1-dose 75+ series) 2028 Meningococcal B Vaccine Aged Out No l onger eligible based on patient's age to complete this topic Meningococcal Vaccine Aged Out No whit rodri eligible based on patient's age to complete this topic RSV Immunizations Under 20 Months Aged Out No longer eligible based on patient's age to complete this topic Insurance [facility] Care Teams Floral Assistant Relationship Specialty Start Date End Date Shannon King MD PCP - General FAMILY PRACTICE 06/03/18
--- OUTSIDE RECORDS SUMMARY | 2024-05-12 10:17 | XMS_ITS | Referral Summary ---
Author Organization [facility] Address [address] [place] [address] Care Team Providers Care Forensic Toxicologist Name Role Phone Shannon King MD Primary Care Provider Encounters Date Type Department Care Team Description 05/10/2024 8:30 AM BRINE PURIFIER Office Visit [facility] Medical [facility] Cardiology [address] [facility] [address] [place] [address] Ela Novak MD Dyspnea on exertion (Primary Dx); Atrioventricular block, Mobitz type 1, Wenckebach; Essential hypertension; Mixed hyperlipidemia from Last 3 Months Allergies No known active allergies Medications docosahexaenoi c acid-epa 120-180 mg capsule Take 2,000 mg by mouth daily Active finasteride (PROSCAR) 5 mg tablet Take 1 tablet (5 mg total) by mouth daily 06/21/19 Active simvastatin (ZOCOR) 10 mg tablet Take 1 tablet (10 mg total) by mouth nightly 08/14/19 Active cholecalcifero l (VITAMIN D-3) 25 mcg [...] tablet 3 07/14/19 24 025 Active fish vrw-todih-1-vi t C-vit E 2,000-650-12 mg/2.5 gram emulsion [...] 12/14/2021 Acute appendicitis 08/25/2021 Bradycardia Essential hypertension Social History Tobacco Use Types Packs/Day Years [...] on file Legal Sex Male 9:12 PM BRINE PURIFIER Gender Identity Male 12/08/2023 1:29 PM CDT Sexual Orientation Straight 12/08/2023 1: 29 PM CDT Last Filed Vital Signs Vital Sign Reading Time Taken Comments Blood Pressure 144/93 05/10/2024 8:25 AM BRINE PURIFIER Pulse 72 05/10/2024 8:25 AM BRINE PURIFIER Temperature 36.6 C (97.9 F) 12/31/2022 11:26 PM CDT Respiratory Rate 13 01/01/2023 3:30 AM CDT Oxygen Saturation 98% 05/10/2024 8:25 AM BRINE PURIFIER Inhaled Oxygen Concentration - - Weight 109.5 kg (241 lb 6.4 oz) 05/10/2024 8:25 AM BRINE PURIFIER Height 177.8 cm (5' 10 ) 07/14/2023 3:10 PM CDT Body Mass Index 34.64 07/14/2023 3:10 PM CDT Plan of Treatment Not on file Procedures Procedure Name Priority Date/Time Associated Diagnosis Comments ECG 12-LEAD Routine 05/10/2024 8:29 AM BRINE PURIFIER Dyspnea on exertion from Last 3 Months Results * ECG 12 lead (05/10/2024 8:29 AM BRINE PURIFIER) us Ela Novak MD ECG ORDERABLES Fi nal Result from Last [address] [facility] MCR SUPPLEMENT RICKY QUINONEZ [id number] MEDICARE [facility] SUPPLEMENT RICKY QUINOENZ [id number] [facility] SUPPLEMENT [place]Y QU[place]ONEZ [id number] MEDICARE Advance Directives For more information, please contact: [phone] * Full Code (Latest Code Status on File) Date Activated Date Inactivated Comments 12/14/2021 4:20 AM 12/16/2021 6:07 PM * Full Code Date Activated Date Inactivated Comments 08/25/2021 2:06 PM 08/26/2021 7:12 PM Care Teams Forensic Toxicologist Relationship Specialty Start Date End Date Shannon King MD PCP - General Family Practice 08/25/21
--- OUTSIDE RECORDS SUMMARY | 2024-05-12 10:17 | XMS_ITS | Clinical Summary ---
Author Organization [facility] Address [address], [address] [address] Phone Care Team Providers Care Tractor Trailer Technician Name Role Phone Shannon King MD Primary Care Provider Allergies No known active allergies Medications Multiple Vitamins-Mineral s (MULTIVITAMIN PO) Take by mouth. Active Magnesium 400 MG Capsule Take by mouth. Active fish oil-omega-3 fatty acids 1000 MG Capsule Take 1,000 mg by mouth daily. Active aspirin EC 81 MG Tablet Delayed Response Take 81 mg by mouth daily. Active finasteride (PROSCAR) 5 MG Tablet Take 5 mg by mouth daily. Active simvastatin (ZOCOR) 10 MG Tablet Take 10 mg by mouth every evening. Active Family History Medical History Relation Name Comments Diabetes Brother Dementia Father Dementia Mother Relation Name Status Comments Brother Father Mother Social History Tobacco Use Types Packs/Day Years Used Date Smoking Tobacco: Never Smokeless Tobacco: Never Alcohol Use Standard Drinks/Week Comments Yes 0 (1 standard drink = 0.6 oz pur e alcohol) socially Sex and Gender Information Value Date Recorded Sex Assigned at Not on file Legal Sex Male 7:54 PM CDT Gender Identity Not on file Sexual Orientation Not on file Plan of Treatment Health Maintenance Due Date Last Done Comments Hepatitis C Virus (HCV) Screening 1955 TdaP Immunization 1955 Cologuard 09/13/2003 Immunochemical Fecal Occult Blood 09/13/2003 Pneumococcal Immunization (5 0+ years) (1 of 1 - PCV) 09/13/2003 Zoster Immunization (1 of 2) 09/13/2003 PSA Discussion 2008 Influenza Immunization (#1) 2023 SARS-COV-2 Immunization ( season) 2023 Colonoscopy 12/31/2027 12/30/2017 Colorectal Cancer Screening 12/31/2027 Respiratory Syncytial Virus (RSV) Immunization (Adult) (1 - 1-dose 75+ series) 2028 12/30/2017 Hepatitis B Immunization Aged Out No longer eligible based on patient's age to complete this topic Meningococcal Immunization (ACWY) Aged Out No longer eligible based on patient's age to complete this topic Rotavirus Immunization Aged Out No lo nger eligible based on patient's age to complete this topic Procedures Procedure Name Priority Date/Time Associated Diagnosis Comments COLONOSCOPY Routine 12/30/2017 from Last 3 Months or Most Recently Relevant to Health Maintenance Results * COLONOSCOPY (12/30/2017) Gary Kerns DO PROCEDURE/MINOR SURGICAL ORDERA BLES Final Result from Last 3 Months or Most Recently Relevant to Health Maintenance Insurance SHARED building maintenance technician Care Teams Tractor Trailer Technician Relationship Specialty Start Date End Date Shannon King MD PCP - General Family Medicine 12/01/17
[2024-05-12 14:26] LABS: Alanine Aminotransferase 42 U/L (6-50); Albumin Level 4.8 g/dL (3.5-5.1); Alkaline Phosphatase 78 U/L (38-126); Anion Gap 9 mmol/L (4-12); Aspartate Amino Transferase 58 U/L (17-59); Bilirubin,Total 0.5 mg/dL (0.2-1.3); Blood Urea Nitrogen 17 mg/dL (9-20); Calcium 9.6 mg/dL (8.4-10.2); Carbon Dioxide 28 mmol/L (22-30); Chloride 104 mmol/L (98-107); Estimated Glomerular Filt Rate > 60; Glucose 103 mg/dL (65-110); Potassium 4.6 mmol/L (3.4-5.0); Sodium 141 mmol/L (137-145)
[2024-05-12 14:31] LABS: Hemoglobin A1C 5.9 % (<5.7)
== END 2024-05-12 09:41 | disposition home or self-care (01) ==
LOC: ANHGOSHLAB 09:41
PROVIDERS: PCP Family Medicine; Visit Provider Family Medicine
DX: R73.03 Prediabetes (principal); I10 Essential (primary) hypertension
CPT/HCPCS: 36415; 80053; 83036